=== PATIENT | male | born 1990 | race American Indian/Alaskan Native ===

== ENCOUNTER 2017-06-30 11:28 | Emergency (ER) | payer MEDICAID ==
[2017-06-30 12:32] LABS: Basophils % (Auto) 0.8 % (0.0-1.8); Eosinophils # (Auto) 0.2 K/mm3 (0.0-0.4); Eosinophils % (Auto) 6.4 % (0.0-4.3); Hematocrit 45.1 % (35.5-45.6); Lymphocytes # (Auto) 0.7 K/mm3 (1.2-5.4); Lymphocytes % (Auto) 18.9 % (13.4-35.0); Mean Corpuscular HGB Conc 33 % (32-34); Mean Corpuscular Hemoglobin 29 pg (28-32); Mean Corpuscular Volume 86 fl (84-94); Monocytes # (Auto) 0.6 K/mm3 (0.0-0.8); Monocytes % (Auto) 15.7 % (0.0-7.3); Platelet Count 238 K/mm3 (140-440); Red Blood Count 5.22 M/mm3 (3.65-5.03); Red Cell Distribution Width 13.5 % (13.2-15.2)
[2017-06-30 12:58] LABS: Alanine Aminotransferase 19 units/L (7-56); Albumin 4.7 g/dL (3.9-5); BUN/Creatinine Ratio 7; Blood Urea Nitrogen 7 mg/dL (9-20); Calcium 9.3 mg/dL (8.4-10.2); Hemolysis Index 5
--- NOTE | 2017-06-30 14:28 | Emergency Department Report ---
ED N/V/D HPI - General Chief complaint: Nausea/Vomiting/Diarrhea Stated complaint: ABDOMINAL PAIN/DIARRHEA Time Seen by Provider: 06/30/17 14:23 Source: patient (His main complaint is poor appetite for a couple of days preventing him from taking HIV medicines. Associated with funny abdominal feeling like he is hungry and loose BM. He denies nausea, vomiting, fever, or chills. ) Mode of arrival: Ambulatory Limitations: No Limitations - Related Data Previous Rx's Medication Instructions Recorded Last Taken Type Amoxicillin [Trimox CAP] 500 mg PO Q8H #30 capsule 06/28/14 Unknown Rx HYDROcodone/APAP 5-325 [[place] 1 each PO Q6HR PRN #16 tablet 06/28/14 Unknown Rx 5-325 mg TAB] Promethazine Dm [Phenergan Dm 5 ml PO Q6H PRN #120 ml 06/28/14 Unknown Rx 6.25/15 mg 5 ml] Ciprofloxacin HCl [Cipro] 500 mg PO BID 10 Days tablet 06/30/17 Unknown Rx Allergies Allergy/AdvReac Type Severity Reaction Status Date / Time No Known Allergies Allergy Unverified 06/28/14 08:44 ED Review of Systems ROS: Stated complaint: ABDOMINAL PAIN/DIARRHEA Other details as noted in HPI Constitutional: denies: chills, fever Eyes: denies: eye pain, eye discharge, vision change ENT: denies: ear pain, throat pain Respiratory: denies: cough, shortness of breath, wheezing Cardiovascular: denies: chest pain, palpitations Endocrine: no symptoms reported Gastrointestinal: denies: abdominal pain, nausea, diarrhea Genitourinary: denies: urgency, dysuria Musculoskeletal: denies: back pain, joint swelling, arthralgia Skin: denies: rash, lesions Neurological: denies: headache, weakness, paresthesias Psychiatric: denies: anxiety, depression Hematological/Lymphatic: denies: easy bleeding, easy bruising ED Past Medical Hx - Past Medical History Previous Medical History?: Yes Hx HIV: Yes - Surgical History Past Surgical History?: No - Social History Smoking Status: Current Every Day Smoker Substance Use Type: None - Medications Home Medications: Home Medications Medication Instructions Recorded Confirmed Last Taken Type Amoxicillin [Trimox CAP] 500 mg PO Q8H #30 capsule 06/28/14 Unknown Rx HYDROcodone/APAP 5-325 [[place] 1 each PO Q6HR PRN #16 tablet 06/28/14 Unknown Rx 5-325 mg TAB] Promethazine Dm [Phenergan Dm 5 ml PO Q6H PRN #120 ml 06/28/14 Unknown Rx 6.25/15 mg 5 ml] Ciprofloxacin HCl [Cipro] 500 mg PO BID 10 Days tablet 06/30/17 Unknown Rx ED Physical Exam - General Limitations: No Limitations General appearance: alert, in no apparent distress - Head Head exam: Present: atraumatic, normocephalic - Eye Eye exam: Present: normal appearance - ENT ENT exam: Present: mucous membranes moist - Neck Neck exam: Present: normal inspection - Respiratory Respiratory exam: Present: normal lung sounds bilaterally. Absent: respiratory distress - Cardiovascular Cardiovascular Exam: Present: regular rate, normal rhythm. Absent: systolic murmur, diastolic murmur, rubs, gallop - GI/Abdominal GI/Abdominal exam: Present: soft, normal bowel sounds - Rectal Rectal exam: Present: deferred - Extremities Exam Extremities exam: Present: normal inspection - Back Exam Back exam: Present: normal inspection - Neurological Exam Neurological exam: Present: alert, oriented X3 - Psychiatric Psychiatric exam: Present: normal affect, normal mood - Skin Skin exam: Present: warm, dry, intact, normal color. Absent: rash ED Course Vital Signs 06/30/17 06/30/17 06/30/17 11:36 14:32 18:37 Temperature 98.1 F 98.1 F 98.5 F Pulse Rate 84 86 76 Respiratory 16 16 Rate Blood Pressure 130/72 Blood Pressure 131/72 107/52 [Right] O2 Sat by Pulse 100 99 100 Oximetry ED Medical Decision Making - Lab Data Result diagrams: 06/30/17 12:10 06/30/17 12:10 Critical care attestation.: If time is entered above; I have spent that time in minutes in the direct care of this critically ill patient, excluding procedure time. ED Disposition Clinical Impression: Diarrhea Qualifiers: Diarrhea type: unspecified type Qualified Code(s): R19.7 - Diarrhea, unspecified Disposition: DC-01 TO HOME OR SELFCARE Is pt being admited?: No Does the pt Need Aspirin: No Condition: Stable Instructions: Acute Diarrhea (ED) Prescriptions: Ciprofloxacin HCl [Cipro] 500 mg PO BID 10 Days tablet Referrals: SALINA CAMPBELL MD [Primary Care Provider] - 3-5 Days Time of Disposition: 19:38
[2017-06-30 14:54] LABS: Bilirubin,Urine NEG (Negative); Blood,Urine NEG (Negative); Color,Urine Yellow (Yellow); Mucus,Urine FEW /HPF; Protein,Urine <15 mg/dL mg/dL (Negative); RBC,Urine < 1.0 /HPF (0.0-6.0); Urobilinogen,Urine < 2.0 mg/dL (<2.0)
[2017-06-30 18:38] VITALS: BP 107/52
--- NOTE | 2017-06-30 19:30 | Cat Scan Report ---
FINAL REPORT EXAM: CT ABDOMEN PELVIS WO CON HISTORY: Abdominal Pain and Diarrhea TECHNIQUE: CT abdomen and pelvis without contrast PRIORS: None. FINDINGS: No acute abnormality identified in the lung bases. No focal abnormality identified within the liver parenchyma. The spleen demonstrates normal size and attenuation. No pancreatic abnormalities seen. Kidneys demonstrate no evidence of hydronephrosis or nephrolithiasis. No ureteral calculus identified. The adrenal glands are unremarkable. Abdominal aorta is normal in caliber. No pathologically enlarged lymph nodes are identified. No signs of free fluid or free air No evidence of small bowel dilatation. No pericolonic inflammatory changes are observed. The appendix is tentatively identified is unremarkable Urinary bladder is unremarkable. IMPRESSION: Negative. No acute abnormalities seen
== END 2017-06-30 19:50 | disposition home or self-care (01) ==
LOC: ED 11:28
DX: R19.7 Diarrhea, unspecified (principal); F17.200 Nicotine dependence, unspecified, uncomplicated
CPT/HCPCS: 36415; 74176; 80053; 81001; 85025

== ENCOUNTER 2018-11-06 12:48 | Emergency (ER) | payer MEDICARE ==
[2018-11-06 12:56] VITALS: BP 111/60
--- NOTE | 2018-11-06 13:20 | Event Note ---
ED Screening Note Date of service: 11/06/18 Time: 13:17 ED Screening Note: 28 y/o male comes in for no bowel movement for 2 weeks. Has been using suppositories and enemas. HIV This initial assessment/diagnostic orders/clinical plan/treatment(s) is/are subject to change based on patients health status, clinical progression and re- assessment by fellow clinical providers in the ED. Further treatment and workup at subsequent clinical providers discretion. Patient/guardian urged not to elope from the ED as their condition may be serious if not clinically assessed and managed. Initial orders include:
--- NOTE | 2018-11-06 13:49 | XRay Report ---
ABDOMEN 1 VIEW(S) INDICATION / CLINICAL INFORMATION: no bowel movment in 2 weeks.. COMPARISON: None available. FINDINGS: TUBES / LINES: None. BOWEL GAS PATTERN/EXTRALUMINAL GAS: No dilated loops of small or large bowel. No pneumatosis or secon david signs of free air. Moderate amount of stool in the colon. ADDITIONAL FINDINGS: No significant additional findings. IMPRESSION: 1. No acute findings. Moderate constipation. Signer Name: Sudarshan Perkins MD Signed: 11/06/2018 1:44 PM Workstation Name: [id number]
--- NOTE | 2018-11-06 14:39 | Emergency Department Report ---
ED General Adult HPI - General Chief complaint: Urogenital-Male Stated complaint: NO BOWEL MOVEMENT Time Seen by Provider: 11/06/18 13:37 Source: patient Mode of arrival: Ambulatory Limitations: No Limitations - History of Present Illness Initial comments: Patient is a 28-year-old male who presents to emergency room with constipation for the last 2 weeks. He states he has only been having small bowel movements. He states he has been straining to have a bowel movement frequently. He states he notices bright red blood from the rectum when he wipes. Patient does not report any nausea, vomiting, abdominal pain. He states he has a history of hemorrhoids in the past. He states he has used enema and suppository without much relief. Past medical history of HIV states he takes his antivirals. Denies any allergies to medications. - Related Data Previous Rx's Medication Instructions Recorded Last Taken Type Amoxicillin [Trimox CAP] 500 mg PO Q8H #30 capsule 06/28/14 Unknown Rx HYDROcodone/APAP 5-325 [[place] 1 each PO Q6HR PRN #16 tablet 06/28/14 Unknown Rx 5-325 mg TAB] Promethazine Dm (Nf) [Phenergan Dm 5 ml PO Q6H PRN #120 ml 06/28/14 Unknown Rx 6.25/15 mg 5 ml] Ciprofloxacin HCl [Cipro] 500 mg PO BID 10 Days tablet 06/30/17 Unknown Rx Docusate Sodium [Colace] 100 mg PO BID PRN #20 capsule 11/06/18 Unknown Rx Hydrocortisone [Anucort-HC SUPPOS] 25 mg RC BID #10 supp.rect 11/06/18 Unknown Rx Magnesium Citrate 300 ml PO DAILY PRN #1 bottle 11/06/18 Unknown Rx Allergies Allergy/AdvReac Type Severity Reaction Status Date / Time No Known Allergies Allergy Verified 11/06/18 13:20 ED Review of Systems ROS: Stated complaint: NO BOWEL MOVEMENT Other details as noted in HPI Comment: All other systems reviewed and negative ED Past Medical Hx - Past Medical History Previous Medical History?: Yes Hx HIV: Yes - Surgical History Past Surgical History?: No - Social History Smoking Status: Current Every Day Smoker Substance Use Type: Alcohol - Medications Home Medications: Home Medications Medication Instructions Recorded Confirmed Last Taken Type Amoxicillin [Trimox CAP] 500 mg PO Q8H #30 capsule 06/28/14 Unknown Rx HYDROcodone/APAP 5-325 [[place] 1 each PO Q6HR PRN #16 tablet 06/28/14 Unknown Rx 5-325 mg TAB] Promethazine Dm (Nf) [Phenergan Dm 5 ml PO Q6H PRN #120 ml 06/28/14 Unknown Rx 6.25/15 mg 5 ml] Ciprofloxacin HCl [Cipro] 500 mg PO BID 10 Days tablet 06/30/17 Unknown Rx Docusate Sodium [Colace] 100 mg PO BID PRN #20 capsule 11/06/18 Unknown Rx Hydrocortisone [Anucort-HC SUPPOS] 25 mg RC BID #10 supp.rect 11/06/18 Unknown Rx Magnesium Citrate 300 ml PO DAILY PRN #1 bottle 11/06/18 Unknown Rx ED Physical Exam - General Limitations: No Limitations General appearance: alert, in no apparent distress - Head Head exam: Present: atraumatic, normocephalic - Eye Eye exam: Present: normal appearance, PERRL - ENT ENT exam: Present: mucous membranes moist - Respiratory Respiratory exam: Present: normal lung sounds bilaterally. Absent: respiratory distress, wheezes, rales, rhonchi, stridor, chest wall tenderness, accessory muscle use, decreased breath sounds, prolonged expiratory - Cardiovascular Cardiovascular Exam: Present: regular rate, normal rhythm, normal heart sounds. Absent: systolic murmur, diastolic murmur, rubs, gallop - GI/Abdominal GI/Abdominal exam: Present: soft, normal bowel sounds. Absent: distended, tenderness, guarding, rebound, rigid - Rectal Rectal exam: Present: normal rectal tone, hemorrhoids (small non thrombosed external hemorrhoid at the 12 oclock position ), other (brown stool, no gross blood on exam, crime scene analyst: JESSE Arias). Absent: tenderness - Neurological Exam Neurological exam: Present: alert, oriented X3 - Psychiatric Psychiatric exam: Present: normal affect, normal mood - Skin Skin exam: Present: warm, dry, intact ED Course Vital Signs 11/06/18 12:54 Temperature 98.4 F Pulse Rate 89 Respiratory 18 Rate Blood Pressure 111/60 [Right] O2 Sat by Pulse 100 Oximetry ED Medical Decision Making - Radiology Data Radiology results: report reviewed ABDOMEN 1 VIEW(S) INDICATION / CLINICAL INFORMATION: no bowel movment in 2 weeks.. COMPARISON: None available. FINDINGS: TUBES / LINES: None. BOWEL GAS PATTERN/EXTRALUMINAL GAS: No dilated loops of small or large bowel. No pneumatosis or secondary signs of free air. Moderate amount of stool in the colon. ADDITIONAL FINDINGS: No significant additional findings. IMPRESSION: 1. No acute findings. Moderate constipation. Signer Name: Sudarshan Perkins MD Signed: 11/06/2018 1:44 PM Workstation Name: [id number] Transcribed By: LOULOU Dictated By: Sudarshan Perkins MD Electronically Authenticated By: Sudarshan Perkins MD Signed Date/Time: 11/06/18 7174 - Medical Decision Making Patient is a 28-year-old male who presents to emergency room with constipation for the last 2 weeks. He states he has only been having small bowel movements. He states he has been straining to have a bowel movement frequently. He states he notices bright red blood from the rectum when he wipes. Patient does not report any nausea, vomiting, abdominal pain. He states he has a history of hemorrhoids in the past. He states he has used enema and suppository without much relief. Past medical history of HIV states he takes his antivirals. Denies any allergies to medications. VSS. on rectal exam: small non thrombosed external hemorrhoid at the 12 oclock position, no mass, no erythema, no induration, no drainage, brown stool, no gross blood, hemoccult negative, crime scene analyst: JESSE arias. no abd tenderness on exam. XR of the abdomen shows No acute findings. Moderate constipation. pt given colace, magnesium citrate, and anusol. advised to please take medications as prescribed. drink plenty of water and eat a high-fiber diet. please follow up with an infectious disease doctor in the next 2-3 days for further evaluation. Follow-up with primary care doctor the next 3 days. Return to the emergency room for any new or worsening symptoms. Critical care attestation.: If time is entered above; I have spent that time in minutes in the direct care of this critically ill patient, excluding procedure time. ED Disposition Clinical Impression: External hemorrhoid, Rectal bleed Constipation Qualifiers: Constipation type: unspecified constipation type Qualified Code(s): K59.00 - Constipation, unspecified Disposition: - TO HOME OR SELFCARE Is pt being admited?: No Does the pt Need Aspirin: No Condition: Stable Instructions: Constipation (ED), Hemorrhoids (ED), High Fiber Diet (ED) Additional Instructions: Please take medications as prescribed. drink plenty of water and eat a high- fiber diet. please follow up with an infectious disease doctor in the next 2-3 days for further evaluation. Follow-up with primary care doctor the next 3 days. Return to the emergency room for any new or worsening symptoms. Prescriptions: Hydrocortisone [Anucort-HC SUPPOS] 25 mg RC BID #10 supp.rect Docusate Sodium [Colace] 100 mg PO BID PRN #20 capsule PRN Reason: Constipation Magnesium Citrate 300 ml PO DAILY PRN #1 bottle PRN Reason: Constipation Referrals: LENNY BRADY MD [Staff Physician] - 2-3 Days NARDIN BLANQUITA CHEN MD [Primary Care Provider] - 2-3 Days Time of Disposition: 15:12 Print Language: IRISH
== END 2018-11-06 15:34 | disposition home or self-care (01) ==
LOC: ED 12:48
DX: K62.5 Hemorrhage of anus and rectum (principal); K59.00 Constipation, unspecified; F17.200 Nicotine dependence, unspecified, uncomplicated; Z21 Asymptomatic human immunodeficiency virus [HIV] infection status; Z79.899 Other long term (current) drug therapy
CPT/HCPCS: 74018; 99283

== ENCOUNTER 2020-11-18 17:16 | Emergency (ER) | payer MEDICARE ==
[2020-11-18 18:19] VITALS: BP 115/67
[2020-11-18] MEDS ORDERED: AZITHROMYCIN 250 MG TAB PO ONE (20:00)
[2020-11-18] MEDS ORDERED: LIDOCAINE-MPF (1%) 10 MG/1 ML VIAL 5 ML INFILTRATI ONE (20:00)
--- NOTE | 2020-11-18 20:47 | Emergency Department Report ---
ED General Adult HPI - General Chief complaint: Urogenital-Male Stated complaint: POSS STD Time Seen by Provider: 11/18/20 19:46 Source: patient Mode of arrival: Ambulatory Limitations: No Limitations - History of Present Illness Initial comments: pt is a 30 y/o aam who presents for dysuria , penile dicharge described as white yellow thick, malodorous , pt denies fever or chills, no n/v, no back or abdominal pain, pt denies open sores or lesion. - Related Data Previous Rx's Medication Instructions Recorded Last Taken Type Amoxicillin [Trimox CAP] 500 mg PO Q8H #30 capsule 06/28/14 Unknown Rx HYDROcodone/APAP 5-325 [[place] 1 each PO Q6HR PRN #16 tablet 06/28/14 Unknown Rx 5-325 mg TAB] Promethazine Dm (Nf) [Phenergan Dm 5 ml PO Q6H PRN #120 ml 06/28/14 Unknown Rx 6.25/15 mg 5 ml] Ciprofloxacin HCl [Cipro] 500 mg PO BID 10 Days tablet 06/30/17 Unknown Rx Docusate Sodium [Colace] 100 mg PO BID PRN #20 capsule 11/06/18 Unknown Rx Hydrocortisone [Anucort-HC SUPPOS] 25 mg RC BID #10 supp.rect 11/06/18 Unknown Rx Magnesium Citrate 300 ml PO DAILY PRN #1 bottle 11/06/18 Unknown Rx Doxycycline Monohydrate 100 mg PO BID 7 Days #14 tablet 11/18/20 Unknown Rx Allergies Allergy/AdvReac Type Severity Reaction Status Date / Time No Known Allergies Allergy Verified 11/06/18 13:20 ED Review of Systems ROS: Stated complaint: POSS STD Other details as noted in HPI Constitutional: denies: chills, fever Eyes: denies: eye pain, eye discharge, vision change ENT: denies: ear pain, throat pain Respiratory: denies: cough, shortness of breath, wheezing Cardiovascular: denies: chest pain, palpitations Endocrine: no symptoms reported Gastrointestinal: denies: abdominal pain, nausea, vomiting, diarrhea Genitourinary: urgency, dysuria, frequency, discharge. denies: hematuria, testicular pain, testicular mass Musculoskeletal: denies: back pain, joint swelling, arthralgia Skin: denies: rash, lesions Neurological: denies: headache, weakness, paresthesias Psychiatric: denies: anxiety, depression Hematological/Lymphatic: denies: easy bleeding, easy bruising ED Past Medical Hx - Past Medical History Previous Medical History?: Yes Hx HIV: Yes - Surgical History Past Surgical History?: No Additional Surgical History: denies - Social History Smoking Status: Never Smoker Substance Use Type: None - Medications Home Medications: Home Medications Medication Instructions Recorded Confirmed Last Taken Type Amoxicillin [Trimox CAP] 500 mg PO Q8H #30 capsule 06/28/14 Unknown Rx HYDROcodone/APAP 5-325 [[place] 1 each PO Q6HR PRN #16 tablet 06/28/14 Unknown Rx 5-325 mg TAB] Promethazine Dm (Nf) [Phenergan Dm 5 ml PO Q6H PRN #120 ml 06/28/14 Unknown Rx 6.25/15 mg 5 ml] Ciprofloxacin HCl [Cipro] 500 mg PO BID 10 Days tablet 06/30/17 Unknown Rx Docusate Sodium [Colace] 100 mg PO BID PRN #20 capsule 11/06/18 Unknown Rx Hydrocortisone [Anucort-HC SUPPOS] 25 mg RC BID #10 supp.rect 11/06/18 Unknown Rx Magnesium Citrate 300 ml PO DAILY PRN #1 bottle 11/06/18 Unknown Rx Doxycycline Monohydrate 100 mg PO BID 7 Days #14 tablet 11/18/20 Unknown Rx ED Physical Exam - General Limitations: No Limitations General appearance: alert - Head Head exam: Present: atraumatic - Eye Eye exam: Present: normal appearance, EOMI Pupils: Present: normal accommodation - ENT ENT exam: Present: mucous membranes moist - Neck Neck exam: Present: normal inspection, full ROM. Absent: tenderness - Respiratory Respiratory exam: Present: normal lung sounds bilaterally. Absent: respiratory distress, wheezes - Cardiovascular Cardiovascular Exam: Present: regular rate, normal rhythm, normal heart sounds. Absent: systolic murmur, diastolic murmur, rubs, gallop - GI/Abdominal GI/Abdominal exam: Present: soft, normal bowel sounds. Absent: distended, tenderness - Rectal Rectal exam: Present: deferred - exam: Present: other (deferred) - Extremities Exam Extremities exam: Present: normal inspection, full ROM. Absent: tenderness - Back Exam Back exam: Present: normal inspection, full ROM. Absent: CVA tenderness (R), CVA tenderness (L) - Neurological Exam Neurological exam: Present: alert, oriented X3, normal gait - Psychiatric Psychiatric exam: Present: normal affect, normal mood - Skin Skin exam: Present: warm, dry, intact, normal color. Absent: rash ED Course Vital Signs 11/18/20 18:16 Temperature 98.3 F Pulse Rate 72 Respiratory 16 Rate Blood Pressure 115/67 O2 Sat by Pulse 95 Oximetry ED Medical Decision Making - Medical Decision Making this is a STD, pt tx'd for same, pt for dc with rx will follow up with health department for HIV , Syphlis, and HSV Screening , pt verbalized understanding of same. Critical care attestation.: If time is entered above; I have spent that time in minutes in the direct care of this critically ill patient, excluding procedure time. ED Disposition Clinical Impression: STD (male) Disposition: DC-01 TO HOME OR SELFCARE Is pt being admited?: No Does the pt Need Aspirin: No Condition: Stable Instructions: Gonorrhea, Chlamydia, Male, Safe Sex Additional Instructions: take medicaions as prescribed , follow up with health department as directed Prescriptions: Doxycycline Monohydrate 100 mg PO BID 7 Days #14 tablet Referrals: [facility] [Outside] - 3-5 Days Forms: Work/School Release Form(ED) Time of Disposition: 20:50
== END 2020-11-18 21:35 | disposition home or self-care (01) ==
LOC: ED 17:16
DX: A64 Unspecified sexually transmitted disease (principal); Z79.2 Long term (current) use of antibiotics; Z79.899 Other long term (current) drug therapy; Z21 Asymptomatic human immunodeficiency virus [HIV] infection status
CPT/HCPCS: 96372; 99282; J0696